=== PATIENT | female | born 1960 | race Caucasian/White ===

== ENCOUNTER 2021-05-14 11:40 | Inpatient (IN) | payer OTHER ==
[~2021-05-14] VITALS: Ht 167.6 cm; Wt 112.9 kg
[2021-05-14 12:36] LABS: HEMOGLOBIN 12.3 gm/dl (12.3-15.3); RED BLOOD COUNT 4.41 M/UL (4.00-5.10); WHITE BLOOD COUNT 14.6 K/UL (4.5-11.0)
[2021-05-14 13:02] LABS: BUN/CREATININE RATIO 26 (0-10)
[2021-05-14] MEDS ORDERED: FEXOFENADINE H180 MG PO (14:25)
[2021-05-14] MEDS ORDERED: VITAMIN D21250 MCG PO (14:25)
[2021-05-14] MEDS ORDERED: TRULICITY3 MG/0.5 M SQ (14:25)
[2021-05-14] MEDS ORDERED: PATADAY2.5 ML OU (14:25)
[2021-05-14] MEDS ORDERED: PROTONIX 40 MG40 M1 PO (14:26)
[2021-05-14] MEDS ORDERED: DULOXETINE HCL30 MG PO ×2 (14:26→14:27)
[2021-05-14] MEDS ORDERED: GLIMEPIRIDE4 MG PO (14:27)
[2021-05-14] MEDS ORDERED: FLONASE 0.05% N16 GM (14:27)
[2021-05-14] MEDS ORDERED: JANUMET 50-1,01 EACH PO (14:28)
[2021-05-14] MEDS ORDERED: ASPIRIN81 MG PO (14:28)
[2021-05-14] MEDS ORDERED: IBU800 MG PO (14:29)
[2021-05-14] MEDS ORDERED: TYLENOL EXTRA500 MG PO (14:29)
[2021-05-15 02:50] LABS: HEMOGLOBIN 11.4 gm/dl (12.3-15.3); RED BLOOD COUNT 4.12 M/UL (4.00-5.10); WHITE BLOOD COUNT 12.6 K/UL (4.5-11.0)
[2021-05-15 03:05] LABS: BUN/CREATININE RATIO 21 (0-10)
[2021-05-16 03:02] LABS: HEMOGLOBIN 11.2 gm/dl (12.3-15.3); RED BLOOD COUNT 4.06 M/UL (4.00-5.10); WHITE BLOOD COUNT 9.6 K/UL (4.5-11.0)
[2021-05-16 03:49] LABS: BUN/CREATININE RATIO 19 (0-10)
[2021-05-17 03:38] LABS: HEMOGLOBIN 11.1 gm/dl (12.3-15.3); RED BLOOD COUNT 3.98 M/UL (4.00-5.10); WHITE BLOOD COUNT 9.8 K/UL (4.5-11.0)
[2021-05-17 03:59] LABS: BUN/CREATININE RATIO 11 (0-10)
[2021-05-18 02:53] LABS: HEMOGLOBIN 11.1 gm/dl (12.3-15.3); RED BLOOD COUNT 3.99 M/UL (4.00-5.10)
[2021-05-18 03:24] LABS: BUN/CREATININE RATIO 14 (0-10)
[2021-05-19 07:01] LABS: HEMOGLOBIN 11.4 gm/dl (12.3-15.3); RED BLOOD COUNT 4.19 M/UL (4.00-5.10)
[2021-05-19 07:07] LABS: BUN/CREATININE RATIO 17 (0-10)
[2021-05-20 03:09] LABS: HEMOGLOBIN 11.5 gm/dl (12.3-15.3); RED BLOOD COUNT 4.15 M/UL (4.00-5.10)
[2021-05-20] MEDS ORDERED: CLINDAMYCIN HC150 MG PO (15:32)
== END 2021-05-20 16:40 | disposition home or self-care (01) | DRG 256 ==
LOC: ER1 11:40 → CDU 14:08 → M/S 14:08
PROVIDERS: Physician Assistant; Physician Assistant Medical; Podiatrist Foot & Ankle Surgery; ADMIT Internal Medicine
PROC: 0JBQ0ZZ Excision of Right Foot Subcutaneous Tissue and Fascia, Open Approach (ICD-10-PCS; 2021-05-15)
PROC: 0Y6P0Z0 Detachment at Right 1st Toe, Complete, Open Approach (ICD-10-PCS; principal; 2021-05-18 18:48)
PROC: 0LNW3ZZ Release Left Foot Tendon, Percutaneous Approach (ICD-10-PCS; 2021-05-18 18:48)
PROC: 0SN Lower Joints, Release (ICD-10-PCS; 2021-05-18 18:48)
DX: E11.52 Type 2 diabetes mellitus with diabetic peripheral angiopathy with gangrene (principal); M86.8X7 Other osteomyelitis, ankle and foot; L97.528 Non-pressure chronic ulcer of other part of left foot with other specified severity; L03.116 Cellulitis of left lower limb; Z68.41 Body mass index [BMI] 40.0-44.9, adult; E11.69 Type 2 diabetes mellitus with other specified complication; Z20.822 Contact with and (suspected) exposure to COVID-19; L03.032 Cellulitis of left toe; I10 Essential (primary) hypertension; B96.20 Unspecified Escherichia coli [E. coli] as the cause of diseases classified elsewhere; E11.40 Type 2 diabetes mellitus with diabetic neuropathy, unspecified; E78.5 Hyperlipidemia, unspecified; E66.01 Morbid (severe) obesity due to excess calories; E11.621 Type 2 diabetes mellitus with foot ulcer; Z79.4 Long term (current) use of insulin; Z79.01 Long term (current) use of anticoagulants; Z79.82 Long term (current) use of aspirin; Z90.49 Acquired absence of other specified parts of digestive tract; Z98.42 Cataract extraction status, left eye; Z98.41 Cataract extraction status, right eye; Z88.8 Allergy status to other drugs, medicaments and biological substances; Z82.49 Family history of ischemic heart disease and other diseases of the circulatory system; Z83.3 Family history of diabetes mellitus; Z80.8 Family history of malignant neoplasm of other organs or systems; Z90.710 Acquired absence of both cervix and uterus
CPT/HCPCS: 36415; 73630; 73718; 80048; 80053; 80202; 82962; 83036; 83605; 83735; 85025; 85027; 85652; 86140; 87040; 87070; 87077; 87186; 87205; 93926; 96374; 96375; 99285; J1100; J1650; J2001; J2270; J2405; J2543; J2704; J2795; J3010; J3370; J7030; J7070; J7120; U0002

== ENCOUNTER 2021-08-14 18:46 | Inpatient (IN) | payer OTHER ==
[~2021-08-14] VITALS: Ht 167.6 cm; Wt 110.7 kg
[~2021-08-14 18:46] MED LIST: ASPIRIN81 MG PO; CLINDAMYCIN HC150 MG PO; DULOXETINE HCL30 MG PO; FEXOFENADINE H180 MG PO; FLONASE 0.05% N16 GM; GLIMEPIRIDE4 MG PO; JANUMET 50-1,01 EACH PO; PATADAY2.5 ML OU; PROTONIX 40 MG40 M1 PO; TRULICITY3 MG/0.5 M SQ; TYLENOL EXTRA500 MG PO; VITAMIN D21250 MCG PO
[2021-08-14 22:59] LABS: HEMOGLOBIN 13.1 gm/dl (12.3-15.3); RED BLOOD COUNT 4.67 M/UL (4.00-5.10); WHITE BLOOD COUNT 18.3 K/UL (4.5-11.0)
[2021-08-15] MEDS ORDERED: KEFLEX CAP 250250 MG PO (02:31)
[2021-08-15] MEDS ORDERED: ATORVASTATIN CA40 MG PO (10:24)
[2021-08-15] MEDS ORDERED: CLOPIDOGREL75 MG PO (10:32)
[2021-08-15] MEDS ORDERED: LOPRESSOR 25 MG25 MG PO (10:33)
[2021-08-15] MEDS ORDERED: ELAVIL 50 MG TA50 MG PO (10:33)
[2021-08-15] MEDS ORDERED: ZOFRAN ODT 4 MG4 MG PO (10:34)
[2021-08-15] MEDS ORDERED: ISOSORBIDE MONO30 MG PO (10:35)
[2021-08-15] MEDS ORDERED: BENZONATATE200 MG PO (10:35)
[2021-08-15] MEDS ORDERED: IBU800 MG PO (14:29)
[2021-08-16 03:26] LABS: HEMOGLOBIN 11.3 gm/dl (12.3-15.3)
[2021-08-16 03:28] LABS: RED BLOOD COUNT 4.1 M/UL (4.00-5.10)
[2021-08-16 03:52] LABS: BUN/CREATININE RATIO 15 (0-10)
[2021-08-17 06:49] LABS: RED BLOOD COUNT 3.93 M/UL (4.00-5.10); WHITE BLOOD COUNT 7.3 K/UL (4.5-11.0)
[2021-08-18 02:39] LABS: HEMOGLOBIN 11.2 gm/dl (12.3-15.3); RED BLOOD COUNT 3.98 M/UL (4.00-5.10); WHITE BLOOD COUNT 7.2 K/UL (4.5-11.0)
[2021-08-18 03:20] LABS: BUN/CREATININE RATIO 19 (0-10)
[2021-08-18] MEDS ORDERED: VANCOMYCIN HCL250 MG PO (12:25)
[2021-08-19 17:00] LABS: HEMOGLOBIN 11.2 gm/dl (12.3-15.3); RED BLOOD COUNT 3.96 M/UL (4.00-5.10)
[2021-08-19 17:01] LABS: WHITE BLOOD COUNT 10.9 K/UL (4.5-11.0)
[2021-08-19 17:16] LABS: BUN/CREATININE RATIO 20 (0-10)
[2021-08-20 03:05] LABS: HEMOGLOBIN 11.6 gm/dl (12.3-15.3); RED BLOOD COUNT 4.14 M/UL (4.00-5.10); WHITE BLOOD COUNT 11.5 K/UL (4.5-11.0)
[2021-08-20 03:28] LABS: BUN/CREATININE RATIO 22 (0-10)
[2021-08-21 03:20] LABS: HEMOGLOBIN 12.1 gm/dl (12.3-15.3); RED BLOOD COUNT 4.36 M/UL (4.00-5.10); WHITE BLOOD COUNT 12.1 K/UL (4.5-11.0)
[2021-08-21 03:58] LABS: BUN/CREATININE RATIO 24 (0-10)
[2021-08-21] MEDS ORDERED: HYDRALAZINE HCL25 MG PO (13:32)
[2021-08-21] MEDS ORDERED: LEVOFLOXACIN500 MG PO (13:32)
== END 2021-08-21 17:08 | disposition home health service (06) | DRG 871 ==
LOC: ER1 18:46 → CDU 08-15 02:35 → M/S 08-15 02:35
PROVIDERS: Internal Medicine; Physician Assistant; ADMIT Internal Medicine
DX: A41.89 Other specified sepsis (principal); J18.9 Pneumonia, unspecified organism; A04.5 Campylobacter enteritis; A04.72 Enterocolitis due to Clostridium difficile, not specified as recurrent; M86.68 Other chronic osteomyelitis, other site; E86.0 Dehydration; I10 Essential (primary) hypertension; E78.5 Hyperlipidemia, unspecified; E83.39 Other disorders of phosphorus metabolism; S20.219A Contusion of unspecified front wall of thorax, initial encounter; E11.40 Type 2 diabetes mellitus with diabetic neuropathy, unspecified; E11.621 Type 2 diabetes mellitus with foot ulcer; E66.9 Obesity, unspecified; H54.8 Legal blindness, as defined in USA; Z79.899 Other long term (current) drug therapy; Z79.82 Long term (current) use of aspirin; Z86.73 Personal history of transient ischemic attack (TIA), and cerebral infarction without residual deficits; Z89.421 Acquired absence of other right toe(s); Z90.49 Acquired absence of other specified parts of digestive tract; Z90.710 Acquired absence of both cervix and uterus; Z98.890 Other specified postprocedural states; Z98.49 Cataract extraction status, unspecified eye; Z83.3 Family history of diabetes mellitus; Z98.51 Tubal ligation status; Z90.89 Acquired absence of other organs; Z88.8 Allergy status to other drugs, medicaments and biological substances; Z68.39 Body mass index [BMI] 39.0-39.9, adult
CPT/HCPCS: 36415; 71045; 71046; 80048; 80053; 81001; 82150; 82550; 82553; 82607; 82962; 83036; 83605; 83690; 83735; 84100; 84439; 84443; 84484; 84550; 85025; 85027; 86140; 87086; 96361; 96374; 99285; J0360; J0692; J1650; J2185; J2405; J3475; Q9967